=== PATIENT | female | born 1990 | race Caucasian/White ===

== ENCOUNTER 2019-11-18 17:02 | Emergency (ER) | payer OTHER ==
--- NOTE | 2019-11-18 18:56 | RAD REPORT ---
EXAM DESCRIPTION: RAD - Hand Left 3 View - 11/18/2019 6:36 pm CLINICAL HISTORY: PAIN, trauma, pain to third digit COMPARISON: None. FINDINGS: No fracture, dislocation or periosteal reaction noted. No acute bone or joint finding. Thi rd digit soft tissue swelling is present. No foreign body. IMPRESSION: Third digit soft tissue swelling. No acute bone or joint finding.
[2019-11-18] MEDS ORDERED: LIDOCAINE 1% MPF 5 ML VIAL ONE (19:59)
[2019-11-18] MEDS ORDERED: TETANUS & DIPHTHERIA TOX,ADULT 0.5 ML VIAL ONE (19:59)
--- NOTE | 2019-11-18 20:27 | ER ---
Nurse's Notes [facility] – [place], [place] Name: Mariel Stark Age: 29 yrs Sex: Female : 1990 Arrival Date: 11/18/2019 Time: 17:04 Bed 27 Private MD: Diagnosis: Laceration without foreign body of left middle finger without damage to nail;Crushing injury of left middle finger Presentation: 11/17 17:43 Chief complaint: Patient states: left hand smashed between two 2 x 4 s while remodeling em home, crush injury noted to the left middle finger, unknown tetanus immunization. Coronavirus screen: Client denies travel out of the [place] in the last 14 days. Ebola Screen: Patient negative for fever greater than or equal to 101.5 degrees Fahrenheit, and additional compatible Ebola Virus Disease symptoms Patient denies exposure to infectious person. Patient denies travel to an Ebola-affected area in the 21 days before illness onset. No symptoms or risks identified at this time. Initial Sepsis Screen: Does the patient meet any 2 criteria? No. Patient's initial sepsis screen is negative. Does the patient have a suspected source of infection? Yes: Skin breakdown/wound. Risk Assessment: Do you want to hurt yourself or someone else? Patient reports no desire to harm self or others. Onset of symptoms was November 18, 2019 at 14:00. 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 - Social history:: Smoking status: Patient denies any tobacco usage or history of. Screenin:15 Abuse screen: Denies threats or abuse. Nutritional screening: No deficits noted. tw2 Tuberculosis screening: No symptoms or risk factors identified. Fall Risk None identified. Assessment: 18:28 General: Appears in no apparent distress. obese, well groomed, Behavior is calm, tw2 cooperative, appropriate for age. Pain: Complains of pain in palmar aspect of middle phalanx of left middle finger and palmar aspect of proximal phalanx of left middle finger. Neuro: Level of Consciousness is awake, alert, obeys commands, Oriented to person, place, time, situation. Cardiovascular: Capillary refill < 3 seconds Patient's skin is warm and dry. Respiratory: Airway is patent Respiratory effort is even, unlabored, Respiratory pattern is regular, symmetrical, Breath sounds are clear bilaterally. GI: No signs and/or symptoms were reported involving the gastrointestinal system. : No signs and/or symptoms were reported regarding the genitourinary system. EENT: No signs and/or symptoms were reported regarding the EENT system. Derm: No signs and/or symptoms reported regarding the dermatologic system. Musculoskeletal: Swelling present in palmar aspect of middle phalanx of left middle finger and palmar aspect of proximal phalanx of left middle finger. Injury Description: Crush injury sustained to palmar aspect of middle phalanx of left middle finger and palmar aspect of proximal phalanx of left middle finger. 18:29 Reassessment: pt states "it happened so fast i am not sure if the boards actually tw2 smashed it because i can move my left middle finger or if it got caught on the board and was ripped open". 19:04 Reassessment: left hand removed from saline/chlorhex solution soak at this time, sg awaiting ERP for evaluation will continue to monitor. Vital Signs: 17:43 Pulse 101; Resp 20; Temp 100(O); Pulse Ox 100% on R/A; Weight 86.18 kg; Height 5 ft. 9 em in. (175.26 cm); Pain 9/10; 17:47 BP 135 / 103; em 18:30 BP 120 / 84; Pulse 102; Resp 17; Pulse Ox 100% on R/A; tw2 17:43 Body Mass Index 28.06 (86.18 kg, 175.26 cm) em ED Course: 17:04 Patient arrived in ED. ds1 17:46 Triage completed. em 17:46 Arm band placed on. em 17:49 Bed in low position. Call light in reach. tw2 18:14 Areli Fallon RN is Primary Nurse. tw2 18:36 Hand Left 3 View XRAY In Process Unspecified. EDMS 18:41 Report given to EDWIN Trejo. tw2 18:44 Primary Nurse role handed off by Areli Fallon RN sg 18:44 Parisi, Neil, RN is Primary Nurse. sg 19:00 [facility] Clements [facility]C [facility]. snw 19:00 Jason Weston MD is Attending Physician. snw 19:56 Assist provider with laceration repair on left middle finger that was 2.5 cm. or less sg using sutures. Set up tray. Performed by Katherine ROMEO Patient tolerated well. 20:40 Patient did not have IV access during this emergency room visit. Wound care: to sg laceration was cleaned with dressed with Patient tolerated well. 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 Exp: sg 04/22/2022. Lot #: [id number]. } Route: IM; Site: left deltoid; 20:34 Follow up: Response: No adverse reaction sg 19:55 Drug: Lidocaine (2 %) 5 mg {Note: medication adminstered by Denis HUIZAR.} Route: sg Infiltration; Outcome: 20:26 Discharge ordered by . snw 20:40 Discharged to home ambulatory. sg 20:40 Condition: good 20:40 Discharge instructions given to patient, Instructed on discharge instructions, follow up and referral plans. no drinking with medication, no driving heavy equipment, medication usage, safety practices, wound care, Demonstrated understanding of instructions, follow-up care, medications, wound care, Prescriptions given X 2. 20:45 Patient left the ED. sg Signatures: Dispatcher [employer] EDMS Neil Parisi, Katherine Knox RN, FNP-C INFECTIOUS DISEASE PHYSICIAN-Csnw Thomas Leon RN Chikis Flores ds1 Areli Fallon RN RN tw2
--- NOTE | 2019-11-18 20:28 | EDPHYS ---
Physician Documentation [facility] Name: Mariel Stark Age: 29 yrs Sex: Female : 1990 Arrival Date: 11/18/2019 Time: 17:04 Bed 27 Private MD: ED Physician Jason Weston HPI: 11/17 19:50 This 29 yrs old Female presents to ER via Ambulatory with complaints of snw Finger Injury. 19:51 The patient or guardian reports a contusion, a laceration, irregular, 2.5 cm(s), pain. snw The complaints affect the palmar aspect of proximal phalanx of left middle finger. Context: The problem was sustained at home, resulted from a crush injury. Onset: The symptoms/episode began/occurred suddenly, just prior to arrival. Associated signs and symptoms: The patient has no apparent associated signs or symptoms. Severity of symptoms: At their worst the symptoms were moderate. The patient has not experienced similar symptoms in the past. It is unknown whether or not the patient has recently seen a physician. needs tetanus updated. 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 - Social history:: Smoking status: Patient denies any tobacco usage or history of. ROS: 19:49 Constitutional: Negative for fever, chills, and weight loss, Eyes: Negative for injury, snw pain, redness, and discharge, ENT: Negative for injury, pain, and discharge, Neck: Negative for injury, pain, and swelling, Cardiovascular: Negative for chest pain, palpitations, and edema, Respiratory: Negative for shortness of breath, cough, wheezing, and pleuritic chest pain, Abdomen/GI: Negative for abdominal pain, nausea, vomiting, diarrhea, and constipation, Back: Negative for injury and pain, : Negative for injury, bleeding, discharge, and swelling, Neuro: Negative for headache, weakness, numbness, tingling, and seizure, Psych: Negative for depression, anxiety, suicide ideation, homicidal ideation, and hallucinations. 19:49 MS/extremity: Positive for injury or acute deformity, laceration, swelling, of the left hand. 19:49 Skin: Positive for laceration(s), of the left middle finger. Exam: 19:45 Constitutional: This is a well developed, well nourished patient who is awake, alert, snw and in no acute distress. Head/Face: Normocephalic, atraumatic. Eyes: Pupils equal round and reactive to light, extra-ocular motions intact. Lids and lashes normal. Conjunctiva and sclera are non-icteric and not injected. Cornea within normal limits. Periorbital areas with no swelling, redness, or edema. ENT: Nares patent. No nasal discharge, no septal abnormalities noted. Tympanic membranes are normal and external auditory canals are clear. Oropharynx with no redness, swelling, or masses, exudates, or evidence of obstruction, uvula midline. Mucous membranes moist. Neck: Trachea midline, no thyromegaly or masses palpated, and no cervical lymphadenopathy. Supple, full range of motion without nuchal rigidity, or vertebral point tenderness. No Meningismus. Chest/axilla: Normal chest wall appearance and motion. Nontender with no deformity. No lesions are appreciated. Cardiovascular: Regular rate and rhythm with a normal S1 and S2. No gallops, murmurs, or rubs. Normal PMI, no JVD. No pulse deficits. Respiratory: Lungs have equal breath sounds bilaterally, clear to auscultation and percussion. No rales, rhonchi or wheezes noted. No increased work of breathing, no retractions or nasal flaring. Abdomen/GI: Soft, non-tender, with normal bowel sounds. No distension or tympany. No guarding or rebound. No evidence of tenderness throughout. Back: No spinal tenderness. No costovertebral tenderness. Full range of motion. MS/ Extremity: Pulses equal, no cyanosis. Neurovascular intact. Full, normal range of motion. + ecchymosis and edema to left third and fourth dorsal fingers, third finger laterally torn by cabinet with edema, jagged laceration x 2.5 cm, bleeding controlled. Neuro: Awake and alert, GCS 15, oriented to person, place, time, and situation. Cranial nerves II-XII grossly intact. Motor strength 5/5 in all extremities. Sensory grossly intact. Cerebellar exam normal. Normal gait. Psych: Awake, alert, with orientation to person, place and time. Behavior, mood, and affect are within normal limits. 19:45 Skin: Appearance: normal except for affected area, injury, laceration(s), the wound is approximately 2.5 cm(s), with a depth of 1 cm(s), of the lateral aspect of third finger laceration. Vital Signs: 17:43 Pulse 101; Resp 20; Temp 100(O); Pulse Ox 100% on R/A; Weight 86.18 kg; Height 5 ft. 9 em in. (175.26 cm); Pain 9/10; 17:47 BP 135 / 103; em 18:30 BP 120 / 84; Pulse 102; Resp 17; Pulse Ox 100% on R/A; tw2 17:43 Body Mass Index 28.06 (86.18 kg, 175.26 cm) em Laceration: 20:28 Wound Repair of 2.5cm ( 1.0in ) subcutaneous laceration to left middle finger. snw Irregularly shaped.. Hemostasis noted.. Distal neuro/vascular/tendon intact. Anesthesia: Digital block administered with 5 mls of 1% lidocaine. Wound prep: Extensive cleansing with hibiclenz by nurse by me. Skin closed with 6 4-0 Prolene using simple sutures and sterile technique. Dressed with pressure dressing, non-adherent dressing. Patient tolerated well. MDM: 19:35 Patient medically screened. snw 20:28 Data reviewed: vital signs, nurses notes. Data interpreted: Pulse oximetry: on room air snw is 100 %. Interpretation: normal. Counseling: I had a detailed discussion with the patient and/or guardian regarding: the historical points, exam findings, and any diagnostic results supporting the discharge/admit diagnosis, radiology results, the need for outpatient follow up, to return to the emergency department if symptoms worsen or persist or if there are any questions or concerns that arise at home. Special discussion: Based on the history and exam findings, there is no indication for further emergent testing or inpatient evaluation. I discussed with the patient/guardian the need to see the hand specialist for further evaluation of the symptoms. I discussed with the patient/guardian the need to see the primary care provider for further evaluation of the symptoms. 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 Exp: sg 04/22/2022. Lot #: [id number]. } Route: IM; Site: left deltoid; 20:34 Follow up: Response: No adverse reaction 19:55 Drug: Lidocaine (2 %) 5 mg {Note: medication adminstered by Denis HUIZAR.} Route: sg Infiltration; Disposition: 11/18 05:58 Co-signature as Attending Physician, Jason Weston MD. pknash Disposition: 11/18/19 20:26 Discharged to Home. Impression: Laceration without foreign body of left middle finger without damage to nail, Crushing injury of left middle finger. - Condition is Stable. - Discharge Instructions: Laceration Care, Adult, Crush Injury of the Hand, Hand Pain. - Prescriptions for Keflex 500 mg Oral Capsule - take 1 capsule by ORAL route every 8 hours for 10 days; 30 capsule. Mobic 7.5 mg Oral Tablet - take 1 tablet by ORAL route once daily take with food; 20 tablet. - Medication Reconciliation Form, Thank You Letter, Antibiotic Education, Prescription Opioid Use form. - Follow up: Emergency Department; When: As needed; Reason: Worsening of condition. Follow up: Private Physician; When: 7 - 10 days; Reason: Staple/Suture removal. Signatures: Dispatcher [employer] Neil Yung RN RN sg Lam, Pin, MD MD pkl Waters, Shelly, FNP-C FNP-Thomas Khan RN RN em Corrections: (The following items were deleted from the chart) 11/17 20:45 20:26 11/18/2019 20:26 Discharged to Home. Impression: Laceration without foreign body sg of left middle finger without damage to nail; Crushing injury of left middle finger. Condition is Stable. Forms are Medication Reconciliation Form, Thank You Letter, Antibiotic Education, Prescription Opioid Use. Follow up: Emergency Department; When: As needed; Reason: Worsening of condition. Follow up: Private Physician; When: 7 - 10 days; Reason: Staple/Suture removal. snw
[2019-11-18 21:12] VITALS: TEMP 100; O2SAT 100
[2019-11-18 21:14] VITALS: BP 120/84
== END 2019-11-18 20:45 | disposition home or self-care (01) ==
LOC: ER 17:02
PROC: 0JQK0ZZ Repair Left Hand Subcutaneous Tissue and Fascia, Open Approach (ICD-10-PCS; principal; 2019-11-18)
DX: S61.213A Laceration without foreign body of left middle finger without damage to nail, initial encounter (principal); X58.XXXA Exposure to other specified factors, initial encounter; Y93.9 Activity, unspecified; Y92.009 Unspecified place in unspecified non-institutional (private) residence as the place of occurrence of the external cause; Z23 Encounter for immunization
CPT/HCPCS: 90471; 90714; 99284